=== PATIENT | male | born 1955 | race Caucasian/White ===

== ENCOUNTER 2017-07-25 05:40 | Day surgery (SDC) | payer OTHER ==
[~2017-07-25] VITALS: Ht 172.7 cm; Wt 110.2 kg
[2017-07-25] MEDS ORDERED: LEXAPRO10 MG PO (05:55)
[2017-07-25] MEDS ORDERED: GABAPENTIN300 MG PO (05:55)
[2017-07-25] MEDS ORDERED: ADVIL200 MG PO (05:55)
[2017-07-25] MEDS ORDERED: OMEPRAZOLE20 MG PO (05:55)
[2017-07-25] MEDS ORDERED: NITROSTAT0.4 MG SL (06:03)
--- NOTE | 2017-07-25 08:13 | NUR ---
07/25/17 0813 Melinda Ivory 0807 PATIENT ARRIVES TO PACU SLEEPING, OPENS EYES TO VERBAL STIMULI, THEN BACK TO SLEEP. RESP EVEN, UNLABORED, SNORING, MASK AT 6 LITERS. ICE PACK TO RIGHT ARM, SLING IN PLACE FROM OR.
--- NOTE | 2017-07-25 08:31 | NUR ---
CALL LIGHT W/IN REACH. OFFICERS @ BS.
[2017-07-25] MEDS ORDERED: ULTRAM50 MG PO (08:42)
--- NOTE | 2017-07-26 13:11 | OR ---
[facility] [address] [place], [place] [address] Signed DATE OF OPERATION: 07/25/2017 SURGEON: Abdiel Sethi MD PREOPERATIVE DIAGNOSIS: Ulnar nerve entrapment, right elbow. POSTOPERATIVE DIAGNOSIS: Ulnar nerve entrapment, right elbow. PROCEDURE: Ulnar nerve release, elbow. ANESTHESIA: General. SPECIMENS AND COMPLICATIONS: There were no specimens or complications. TOURNIQUET TIME: Little over 20 minutes. WHAT WAS DONE: The patient was taken to the operating room and placed on the table in a supine position. After anesthesia was induced and airway secured, the patient was positioned, prepped and draped in a routine sterile fashion. The arm was exsanguinated with an Esmarch bandage. Pneumatic tourniquet around the upper arm was inflated to 250 mmHg pressure. A posteromedial curvilinear incision was made just slightly behind the medial epicondyle. The skin was divided sharply. Subcutaneous tissue was bluntly spread. Using a sharp dissection, we exposed the median nerve in the cubital tunnel and then traced it both proximally and distally. Proximally, we traced it of about 10 cm. I then placed an [employer] underneath the proximal flap and found we could easily pass the tip of the glove finger along the nerve without meeting any additional encumbrances. Distally, dissection was carried down to the level of the first motor branch. There was fairly severe constriction of the nerve right in the cubital tunnel, but the rest of it looked fine. We therefore gently irrigated the wound and closed the subcutaneous tissue. Routine skin closure was accomplished and a sterile dressing applied. The patient placed in a splint, awakened and taken to recovery room, where he arrived in stable condition. Counts were correct and antibiotic protocols were followed. Electronically Signed By: ABDIEL SETHI MD 07/26/17 1311 PATIENT NAME: CHRIS ZAMUDIO OPERATIVE REPORT DATE OF : 55 PHYSICIAN: ABDIEL SETHI MD REPORT #: [id number] REPORT IS CONFIDENTIAL AND NOT TO BE RELEASED WITHOUT AUTHORIZATION [address] [place], [place] [address] Signed MD OZZIE Barriga/GAUTAML /[id number] Electronically Signed By: ABDIEL SETHI MD 07/26/17 1311 PATIENT NAME: CHRIS ZAMUDIO OPERATIVE REPORT DATE OF : 55 PHYSICIAN: ABDIEL SETHI MD REPORT #: [id number] REPORT IS CONFIDENTIAL AND NOT TO BE RELEASED WITHOUT AUTHORIZATION
== END 2017-07-25 09:50 | disposition home or self-care (01) ==
LOC: DS 05:40 → OPS 05:40 → DS 06:45 → OPS 09:50
PROVIDERS: Orthopaedic Surgery
PROC: 01N40ZZ Release Ulnar Nerve, Open Approach (ICD-10-PCS; principal; 2017-07-25 06:45)
DX: G56.21 Lesion of ulnar nerve, right upper limb (principal); Z79.899 Other long term (current) drug therapy
CPT/HCPCS: 01710; J0690; J1885; J2250; J2405; J2704; J2765; J3010; J7120

== ENCOUNTER 2018-07-19 05:51 | Day surgery (SDC) | payer OTHER ==
[~2018-07-19] VITALS: Ht 172.7 cm; Wt 90.7 kg
[~2018-07-19 05:51] MED LIST: ADVIL200 MG PO; GABAPENTIN300 MG PO; LEXAPRO10 MG PO; NITROSTAT0.4 MG SL; OMEPRAZOLE20 MG PO; ULTRAM50 MG PO
[2018-07-19] MEDS ORDERED: CHLORTHALIDONE25 MG PO (06:12)
[2018-07-19] MEDS ORDERED: METOPROLOL SUCC50 MG PO (06:13)
[2018-07-19] MEDS ORDERED: FLOMAX0.4 MG PO (06:14)
[2018-07-19] MEDS ORDERED: LIPITOR20 MG PO (06:14)
--- NOTE | 2018-07-19 07:07 | NUR ---
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 NEW WELL.
--- NOTE | 2018-07-19 07:47 | EKG ---
[facility] [address] [facility] [place], [place] [address] Signed Normal sinus rhythm Nonspecific ST abnormality Abnormal ECG No previous ECGs available Confirmed by LAVON LA MD ([id number]) on 07/19/2018 7:47:32 AM Electronically Signed By: LAVON LA MD 07/19/18 0747 PATIENT NAME: CHRIS ZAMUDIO Electrocardiogram DATE OF : 55 PHYSICIAN: LAVON LA MD REPORT #: [id number] REPORT IS CONFIDENTIAL AND NOT TO BE RELEASED WITHOUT AUTHORIZATION
--- NOTE | 2018-07-19 08:33 | NUR ---
07/19/18 0833 MorOumou 0866-PATIENT ARRIVED TO PACU ON 6L MASK O2 SAT 100% RR EVEN. PATIENT REACTIVE TO VOICE OPENS EYES DENIES PAIN OR NAUSEA. PER KULDIP [employer] OPERATOR GIVE ALBUTEROL TX. LEFT ARM IN SLING ELEVATED ON PILLOW. DRESSING CDI WILL APPLY ICE 0830-ALBUTEROL TX STARTED PATIENT DROWSY DENIES PAIN HAS COUGH NO SPUTUM SEEN.
--- NOTE | 2018-07-19 09:08 | NUR ---
PT ARRIVES TO DS RM 10 AWAKE AND ALERT. PT DENIES ANY PAIN AND STATES THAT LEFT ARM IS NUMB. PT DENIES NAUSEA, TOLERATES PO WELL. [facility] GUARDS AT BEDSIDE. DC CRITERIA DISCUSSED.
[2018-07-19] MEDS ORDERED: ULTRAM50 MG PO (09:27)
--- NOTE | 2018-07-19 09:56 | NUR ---
PT RESTING IN BED IN HIGH FOWLERS POSITION. RESP EVEN AND UNLABORED, SATS 94% ON RA. PT DENIES ANY PAIN IN LEFT ARM AND STATES THAT IT IS STILL NUMB. PT ABLE TO MOVE FINGERS SLIGHTLY WHEN PROMPTED. PT DENIES NAUSEA AND TOLERATES PO.
--- NOTE | 2018-07-19 10:28 | NUR ---
[id number]: PT UP TO BATHROOM WITH ASSIST FROM [employer] GUARDS. PT ABLE TO VOID QS. PT DRESSES SELF WITH HELP FROM GUARDS. DC INSTRUCTIONS GIVEN IN PRESENCE OF PT AND [employer] GUARDS. PAIN SCRIPT GIVEN TO GUARDS IN SEALED [employer]VELOPE. PT DC'S VIA WC FROM DS RM 10 TO [facility] WITH GUARDS. 1015: REPORT CALLED TO NURSE WOOD AT [facility].
--- NOTE | 2018-07-20 10:51 | OR ---
[facility] [address] [place], [place] [address] Signed DATE OF OPERATION: 07/19/2018 SURGEON: Abdiel Sethi MD PREOPERATIVE DIAGNOSES: 1. Carpal tunnel, left. 2. Cubital tunnel syndrome, left. POSTOPERATIVE DIAGNOSES: 1. Carpal tunnel, left. 2. Cubital tunnel syndrome, left. PROCEDURE PERFORMED: Carpal tunnel release, left, followed by a cubital tunnel release, left. ANESTHESIA: General. SPECIMENS AND COMPLICATIONS: There were no specimens or complications. TOURNIQUET TIME: Was about 40 minutes. WHAT WAS DONE: The patient was taken to the operating room. After anesthesia was induced and the airway secured, the patient's left upper extremity was prepped, draped, and positioned in a routine sterile fashion. The arm was exsanguinated with an Esmarch bandage. Pneumatic tourniquet about the upper arm was inflated to 250 mmHg pressure. Beginning at the wrist, volar incision was made beginning at the distal wrist flexion crease and extending distally for about 2 cm. Skin was divided sharply. Subcutaneous tissue was bluntly spread. The transverse volar carpal ligament was identified and released with the tip of a #15 blade. We then placed a Ragnell retractor under the distal flap and under direct vision, released the rest of the median nerve out into the mid palm. We then reversed direction put the edge of the Ragnell Steve and the proximal flap and released the distal 3 cm of the antebrachial fascia. At this point, we appeared to have a complete decompression of the median nerve, which was visualized. The wound was gently irrigated and closed in a standard fashion. We then made a 2nd curvilinear incision over the posteromedial aspect of the elbow. Skin was divided sharply. Subcutaneous tissue was bluntly spread. Using a sharp dissection, we identified the Electronically Signed By: ABDIEL SETHI MD 07/20/18 1051 PATIENT NAME: CHRIS ZAMUDIO OPERATIVE REPORT DATE OF : 55 REPORT #: [id number] PHYSICIAN: ABDIEL SETHI MD PCP: MACRINA LESTER MD REPORT IS CONFIDENTIAL AND NOT TO BE RELEASED WITHOUT AUTHORIZATION [facility] [address] [place], [place] [address] Signed median nerve behind the medial epicondyle in the cubital tunnel. Under direct vision, we then released it proximally for about 9 cm. We then placed an [employer] onto the proximal flap and could easily pass the tip of the glove finger all the way up to the edge of the tourniquet without any additional encumbrances. We then continued the dissection in antegrade fashion and completely unroofed the nerve all the way down to the 1st motor branch. The wound was gently irrigated and closed in a standard fashion leaving the nerve in the groove. A sterile dressing was applied. He was placed in a well-padded posterior splint. He was awakened and taken to recovery room where he arrived in stable condition. Counts were correct and antibiotic protocols were followed. MD ALCIDES BarrigaB/MODL /[id number] Copies: ~ Electronically Signed By: ABDIEL SETHI MD 07/20/18 1051 PATIENT NAME: CHRIS ZAMUDIO OPERATIVE REPORT DATE OF : 55 REPORT #: [id number] PHYSICIAN: ABDIEL SETHI MD PCP: MACRINA LESTER MD REPORT IS CONFIDENTIAL AND NOT TO BE RELEASED WITHOUT AUTHORIZATION
== END 2018-07-19 10:15 | disposition home or self-care (01) ==
LOC: DS 05:51 → OPS 05:51 → DS 06:45 → OPS 10:15
PROVIDERS: Orthopaedic Surgery
PROC: 01N50ZZ Release Median Nerve, Open Approach (ICD-10-PCS; principal; 2018-07-19 06:45)
PROC: 01N40ZZ Release Ulnar Nerve, Open Approach (ICD-10-PCS; 2018-07-19 06:45)
DX: G56.02 Carpal tunnel syndrome, left upper limb (principal); G56.22 Lesion of ulnar nerve, left upper limb; R05 Cough; F41.9 Anxiety disorder, unspecified; Z87.891 Personal history of nicotine dependence; Z79.899 Other long term (current) drug therapy
CPT/HCPCS: 01810; 36415; 64417; 76942; 80053; 85025; 93005; 93010; J0330; J0690; J1100; J1885; J2250; J2405; J2704; J2795; J7120

== ENCOUNTER 2020-06-10 06:33 | Emergency (ER) | payer OTHER ==
[~2020-06-10] VITALS: Ht 172.7 cm; Wt 112.5 kg
[~2020-06-10 06:33] MED LIST changes: +CHLORTHALIDONE25 MG PO; +FLOMAX0.4 MG PO; +LIPITOR20 MG PO; +METOPROLOL SUCC50 MG PO
[2020-06-10] MEDS ORDERED: ASPIRIN81 MG PO (07:00)
[2020-06-10] MEDS ORDERED: CELEBREX100 MG PO (07:01)
[2020-06-10] MEDS ORDERED: VITAMIN B-650 MG PO (07:02)
[2020-06-10] MEDS ORDERED: VENTOLIN HFA18 GM INH (07:11)
[2020-06-10] MEDS ORDERED: PREDNISONE20 MG PO (08:29)
[2020-06-10] MEDS ORDERED: IPRAT-ALBUT 0.5-3 ML INH (08:29)
--- NOTE | 2020-06-11 12:18 | EKG ---
[facility] [address] [facility] [place], [place] [address] Signed Normal sinus rhythm Normal ECG When compared with ECG of 19-JUL-2018 06:35, No significant change was found Confirmed by LILLY DURAN MD ([id number]) on 06/11/2020 12:17:51 PM Electronically Signed By: LILLY DURAN MD 06/11/20 1218 PATIENT NAME: CHRIS ZAMUDIO Electrocardiogram DATE OF : 55 PHYSICIAN: LILLY DURAN MD REPORT #: [id number] REPORT IS CONFIDENTIAL AND NOT TO BE RELEASED WITHOUT AUTHORIZATION
== END 2020-06-10 09:25 | disposition home or self-care (01) ==
LOC: ED 06:33
DX: J44.1 Chronic obstructive pulmonary disease with (acute) exacerbation (principal); I10 Essential (primary) hypertension; Z87.891 Personal history of nicotine dependence; Z88.0 Allergy status to penicillin; Z79.899 Other long term (current) drug therapy; Z79.82 Long term (current) use of aspirin; Z20.828 Contact with and (suspected) exposure to other viral communicable diseases
CPT/HCPCS: 71045; 80053; 83735; 83880; 84484; 85025; 93005; 93010; 94640; 96374; 99285-25; C9803; J2930; U0003

== ENCOUNTER 2021-01-18 09:39 | Emergency (ER) | payer OTHER ==
[~2021-01-18] VITALS: Ht 172.7 cm; Wt 117.9 kg
[~2021-01-18 09:39] MED LIST changes: +ASPIRIN81 MG PO; +CELEBREX100 MG PO; +IPRAT-ALBUT 0.5-3 ML INH; +PREDNISONE20 MG PO; +VENTOLIN HFA18 GM INH; +VITAMIN B-650 MG PO
[2021-01-18] MEDS ORDERED: K-TAB ER20 MEQ PO (09:52)
[2021-01-18] MEDS ORDERED: METFORMIN HCL500 MG PO (09:54)
[2021-01-18] MEDS ORDERED: ACID REDUCER20 MG PO (09:55)
[2021-01-18] MEDS ORDERED: DULOXETINE HCL60 MG PO (09:58)
[2021-01-18] MEDS ORDERED: METOPROLOL SUC100 MG PO (09:59)
[2021-01-18] MEDS ORDERED: HYDROCHLOROTH12.5 M1 PO (09:59)
--- NOTE | 2021-01-19 07:12 | EKG ---
[facility] [address] [facility] [place], [place] [address] Signed Normal sinus rhythm with sinus arrhythmia Nonspecific ST abnormality Abnormal ECG When compared with ECG of 10-JUN-2020 06:56, No significant change was found Confirmed by LAVON LA MD ([id number]) on 01/19/2021 7:12:25 AM Electronically Signed By: LAVON LA MD 01/19/21711 PATIENT NAME: ZAMUDIOCHRIS Electrocardiogram DATE OF : 55 PHYSICIAN: LAVON LA MD REPORT #: [id number] REPORT IS CONFIDENTIAL AND NOT TO BE RELEASED WITHOUT AUTHORIZATION
== END 2021-01-18 11:07 | disposition home or self-care (01) ==
LOC: ED 09:39
DX: K21.9 Gastro-esophageal reflux disease without esophagitis (principal); J44.9 Chronic obstructive pulmonary disease, unspecified; I10 Essential (primary) hypertension; Z87.891 Personal history of nicotine dependence; Z88.0 Allergy status to penicillin; Z79.899 Other long term (current) drug therapy; Z79.82 Long term (current) use of aspirin; Z79.84 Long term (current) use of oral hypoglycemic drugs
CPT/HCPCS: 71045; 80053; 83735; 84484; 85025; 93005; 93010; 99285-25